=== PATIENT | male | born 1955 | race Caucasian/White ===

== ENCOUNTER → 2017-03-26 | Outpatient (CLI) | payer OTHER ==
[~2017-03-26] MED LIST: NONE PER PT; OMNIPAQUE 350 MG/ML, 100ML BOTTLE ONE; OXYC1TAB7 PO
== END | disposition home or self-care (01) ==
LOC: CFH 10:49
PROVIDERS: ATTEND Internal Medicine
DX: C83.33 Diffuse large B-cell lymphoma, intra-abdominal lymph nodes (principal); N28.1 Cyst of kidney, acquired
CPT/HCPCS: 71260; 74177; Q9967